=== PATIENT | male | born 1955 | race Caucasian/White ===

== ENCOUNTER 2019-04-02 07:48 | Day surgery (SDC) | payer MEDICAID, OTHER ==
[~2019-04-02] VITALS: Ht 180.3 cm; Wt 83.4 kg
[2019-04-02] VITALS (12 sets, daily range): BP systolic 140–155; BP diastolic 86–105; PULSE 67–99; RESP 15–18; Ht 180.3 cm; Wt 83.4 kg
[2019-04-02] MEDS ORDERED: HYDR12.53 ORAL (08:39)
[2019-04-02] MEDS ORDERED: TOPI25TA10 ORAL (08:39)
[2019-04-02] MEDS ORDERED: TERA2CAP3 ORAL (08:39)
[2019-04-02] MEDS ORDERED: GABA-528 ORAL (08:39)
[2019-04-02] MEDS ORDERED: OMEP20CA16 ORAL (08:43)
[2019-04-02] MEDS ORDERED: SECU150S2 SQ (08:43)
[2019-04-02] MEDS ORDERED: DULO60CA59 ORAL (08:43)
[2019-04-02] MEDS ORDERED: BUPR75TA9 ORAL (08:43)
[2019-04-02] MEDS ORDERED: LORA10TA3 ORAL (08:43)
[2019-04-02] MEDS ORDERED: POLYMYXIN/BACITRACIN 1L IRRIG ONE (08:44)
[2019-04-02] MEDS ORDERED: ESZO3TAB37 ORAL (08:44)
[2019-04-02] MEDS ORDERED: BUPIVACAINE 0.5% (SDV) 30 ML INJ ONE (08:44)
[2019-04-02] MEDS ORDERED: TR1B60 TOP (08:46)
[2019-04-02] MEDS ORDERED: OXYC30TA PO (08:46)
[2019-04-02] MEDS ORDERED: THYR60TA ORAL (08:46)
--- NOTE | 2019-04-02 08:54 | HPN ---
Date/Time of Note Date/Time of Note DATE: 04/02/19 TIME: 08:54 Interval H&P Admission Note Pt. seen H&P reviewed: No system changes JOHNY RIZVI April 02, 2019 08:54
--- NOTE | 2019-04-02 09:13 | PREAC ---
Date/Time of Note Date/Time of Note DATE: 04/02/19 TIME: 09:04 Anesthesia Eval and Record Evaluation Time Pre-Procedure Interview DATE: 04/02/19 TIME: 09:04 Age 63 Sex male NPO: 8 hrs Preoperative diagnosis right cubital tunnel syndrome. right elbow medial epicondylitis. Right carpal tunnel syndrome Planned procedure right ulnar nerve decompression at the elbo.l Right elbow medial epicondylectomy with primary repair of common flexor tendon origin. RIght carpal tunnel release versus open Past Medical History Past Medical History: Includes (chronic oxycodon for 10 years for chronic back pain) Cardio: HTN Renal: BPH GI: GERD Psych: Depression Recreational drugs: Other Surgery & Anesthesia Issues No known issue (polyarthralgia) Meds Anticoagulation: No Beta Yomi within 24 hr: No Reason Beta Yomi not given: Pt. not on B-Yomi Reported Medications Oxycodone Hcl* (IR) (Oxycodone Hcl*) 30 Mg Tablet, 30 MG PO Q4H PRN for PAIN, TAB 04/02/19 Thyroid,Pork ([employer] THYROID) 60 Mg Tablet, 1 TAB ORAL DAILY 04/02/19 Triamcinolone Acetonide (Triamcinolone Acetonide) 0.1% - 60 Ml Lotion, TOP DAILY APPLY TO AFFECTED AREA 04/02/19 Eszopiclone (Eszopiclone) 3 Mg Tablet, 1 TAB ORAL DAILY 04/02/19 Duloxetine Hcl* (Duloxetine Hcl*) 60 Mg Capsule.dr, 1 CAP ORAL DAILY 04/02/19 Bupropion Hcl* (Bupropion Hcl*) 75 Mg Tablet, 1 TAB ORAL DAILY 04/02/19 Loratadine* (Loratadine*) 10 Mg Tablet, 1 TAB ORAL DAILY 04/02/19 Omeprazole* (Omeprazole*) 20 Mg Capsule.dr, 1 CAP ORAL DAILY 04/02/19 Secukinumab (Cosentyx (2 Syringes)) 150 Mg/1 Ml Syringe, 150 MG SQ [id number] 04/02/19 Topiramate* (Topiramate*) 25 Mg Tablet, 1 TAB ORAL DAILY 04/02/19 Gabapentin* (Gabapentin*) 800 Mg Tablet, 3 TAB ORAL QHS 04/02/19 Hydrochlorothiazide (Hydrochlorothiazide) 12.5 Mg Capsule, 1 CAP ORAL DAILY 04/02/19 Terazosin Hcl* (Terazosin Hcl*) 2 Mg Capsule, 1 CAP ORAL QHS 04/02/19 Meds reviewed: Yes Allergies Coded Allergies: No Known Allergy (Unverified , 04/02/19) Allergies Reviewed: Yes Labs/Studies Labs Reviewed: Reviewed by anesthesiologist test: N/A Pre-procedure Exam Last vitals Vital Signs Date Temp Pulse Resp B/P (MAP) Pulse Ox O2 O2 Flow FiO2 Time Delivery Rate 04/02/19 98.9 99 16 141/90 97 Room Air 08:27 (107) Airway: Adequate mouth opening, Adequate thyromental dist Mallampati: Mallampati III Teeth: Normal Lung: Normal Heart: Normal ASA Physical Status ASA physical status: 3 Emergency: None Planned Anesthetic General/MAC: LMA Planned Pain Management Local by surgeon Pre-operative Attestations Prior to commencing anesthesia and surgery, the patient was re-evaluated, there was verification of: *The patient's identity *The results of appropriate recent lab work and preoperative vital signs *The above evaluation not changing prior to induction *Anesthetic plan, risk benefits, alternative and complications discussed with pa tient/family; questions answered; patient/family understands, accepts and wishes to proceed. MELLY SIMPSON CRNA April 02, 2019 09:13
[2019-04-02] MEDS ORDERED: LIDOCAINE 2% (SDV) 5 ML INJ ONE (09:15)
[2019-04-02] MEDS ORDERED: FENTAnyl 50 MCG/ML VIAL ONE (09:15)
[2019-04-02] MEDS ORDERED: PROPOFOL 20 ML ONE (09:15)
[2019-04-02] MEDS ORDERED: ONDANSETRON 4 MG INJ ONE (09:27)
[2019-04-02] MEDS ORDERED: CEFAZOLIN 1 GM INJ ONE (09:27)
[2019-04-02] MEDS ORDERED: FAMOTIDINE 20 MG INJ ONE (09:28)
[2019-04-02] MEDS ORDERED: DEXAMETHASONE 4 MG/ML 5 ML INJ ONE (09:28)
[2019-04-02] MEDS ORDERED: POLYMYXIN/BACITRACIN 1L IRRIG IRR ONE (09:42)
[2019-04-02] MEDS ORDERED: KETOROLAC 30 MG INJ IV PRN (10:00)
[2019-04-02] MEDS ORDERED: ONDANSETRON 4 MG INJ IV PRN (10:00)
[2019-04-02] MEDS ORDERED: FENTAnyl 50 MCG/ML VIAL IV PRN ×2 (10:00)
[2019-04-02] MEDS ORDERED: MEPERIDINE 25 MG INJ IV PRN (10:00)
[2019-04-02] MEDS ORDERED: HYDROmorphONE 1 MG/5 ML IV SYRINGE IV PRN ×3 (10:00)
[2019-04-02] MEDS ORDERED: OXYCODONE/ACETAMINOPHEN (5/325) TAB PO PRN ×2 (10:00)
--- NOTE | 2019-04-02 10:15 | PAC ---
Date/Time of Note Date/Time of Note DATE: 04/02/19 TIME: 10:13 Post-Anesthesia Notes Post-Anesthesia Note Last documented vital signs Vital Signs Date Temp Pulse Resp B/P (MAP) Pulse Ox O2 O2 Flow FiO2 Time Delivery Rate 04/02/19 98.8 84 12 147/87 97 Room Air 10:07 Activity: WNL Respiratory function: WNL Cardiovascular function: WNL Mental status: Baseline Pain reasonably controlled: Yes Hydration appropriate: Yes Nausea/Vomiting absent: Yes MELLY SIMPSON CRNA April 02, 2019 10:15
--- NOTE | 2019-04-02 10:57 | OPPN ---
Date/Time of Note Date/Time of Note DATE: 04/02/19 TIME: 10:56 Operative Report Preoperative Diagnosis Right cubital tunnel syndrome right carpal tunnel syndrome right elbow medial epicondylitis Postoperative Diagnosis Right cubital tunnel syndrome right carpal tunnel syndrome right elbow medial epicondylitis Operation/Procedure Performed Right ulnar nerve decompression at the elbow right carpal tunnel release, open right elbow medial epicondylectomy with primary repair common flexor tendon Surgeon see signature line child care assistant none Anesthesia: general Estimated blood loss: 0 - 10 ml's Transfusion Required none Specimen none Grafts/Implants none Complications none JOHNY RIZVI April 02, 2019 10:57
--- NOTE | 2019-04-02 15:48 | OPR ---
DATE OF OPERATION: 04/02/2019 SURGEON: Anthony Weeks MD. ANESTHESIA: General. PREOPERATIVE DIAGNOSES: 1. Right ulnar nerve compression at the elbow, cubital tunnel syndrome. 2. Right carpal tunnel syndrome. 3. Right elbow medial epicondylitis. POSTOPERATIVE DIAGNOSES: 1. Right ulnar nerve compression at the elbow, cubital tunnel syndrome. 2. Right carpal tunnel syndrome. 3. Right elbow medial epicondylitis. PROCEDURE: 1. Right ulnar nerve decompression at the elbow. 2. Right carpal tunnel release, open. 3. Right elbow medial epicondylectomy. 4. Right elbow primary repair of common flexor tendon origin. OPERATIVE FINDINGS: Compression of median nerve at the wrist and ulnar nerve at the elbow. INDICATION FOR PROCEDURE: This is a 63-year-old male with longstanding right elbow and wrist pain as well as numbness in the hand. We discussed the options. Given failure of conservative measures, the patient elected to proceed with surgical intervention, understanding the risks and benefits. DESCRIPTION OF PROCEDURE: The patient was seen in the preoperative area and all further questions were answered. Again, he gave informed consent understanding risks and benefits. He was taken to operative suite and placed in supine position. He was placed under general anesthesia and 2 grams Ancef IV given. Tourniquet placed in the right upper extremity and right upper extremity was prepped with ChloraPrep stick and draped in usual sterile fashion. Esmarch bandage was used to exsanguinate the extremity and tourniquet inflated to 250 mmHg. Attention was first turned to the carpal tunnel and a 2 cm incision at the base of the palm was utilized. Sharp dissection carried down through skin and subcutaneous tissue. The palmar aponeurosis was incised along its ulnar border and retractors were deepened where the transverse carpal ligament was incised on its ulnar border approximately 3 mm radial to the hook of the hamate. Retractors were placed proximally and distally, and proximal and distal to the transverse carpal ligament were divided under direct visualization. Wound was copiously irrigated and skin closed with 5-0 nylon. Attention was turned to the elbow and a curvilinear incision over the medial epicondyle was utilized with sharp dissection carried down through skin and subcutaneous tissue. The soft tissues were divided using tenotomy scissors and the medial epicondyle and cubital tunnel and Hodges's ligament was visualized. The nerve was decompressed at the elbow with division of Hodges's ligament as well as the superficial and deep layers of the FCU fascia. The nerve was decompressed proximally past the intermuscular septum. The nerve was stable in the groove and was decompressed and attention was then turned to the medial epicondylectomy and repair of the common flexor tendon origin. The flexor tendon was elevated off of the medial epicondyle and medial epicondylectomy was performed using a rongeur with 4 mm of bone excised. The edges of the bone were smoothed, and there was decreased prominence of the medial epicondyle. The wound was copiously irrigated and the common flexor tendon origin was repaired using 3-0 Ethibond suture. After repair of the common flexor tendon origin. The elbow was ranged and everything was stable. The wound was then irrigated and skin closed with 5-0 nylon. Xeroform placed over the wound followed by sterile gauze, Webril, and a long arm splint. Tourniquet deflated after 30 minutes. The patient was awakened from anesthesia. He was taken to the operative suite in stable condition, tolerated the procedure well without complication. SPECIMENS: None. ESTIMATED BLOOD LOSS: 5 mL. COUNTS: Sponge, instrument and needle counts were correct. TOURNIQUET TIME: 30 minutes. CONDITION ON DISCHARGE: Stable. The patient was given nonrefillable 5-day prescription for pain medication for surgery today. Dictated By: ANTHONY SEGURA/BRUNO Conf#: [id number] DID#: [id number] ANTWAN
== END 2019-04-02 11:45 | disposition home or self-care (01) ==
LOC: SDS 07:48
PROVIDERS: ATTEND Orthopaedic Surgery Hand Surgery
DX: G56.21 Lesion of ulnar nerve, right upper limb (principal); G56.01 Carpal tunnel syndrome, right upper limb; M77.01 Medial epicondylitis, right elbow; I10 Essential (primary) hypertension
CPT/HCPCS: 24358; 64721; J0690; J1100; J1170; J1885; J2175; J2405; J3010; Z7512; Z7610

== ENCOUNTER 2019-07-27 06:55 | Day surgery (SDC) | payer OTHER ==
[~2019-07-27] VITALS: Ht 180.3 cm; Wt 81.6 kg
[~2019-07-27 06:55] MED LIST: BUPR75TA9 ORAL; DULO60CA59 ORAL; ESZO3TAB37 ORAL; GABA-528 ORAL; HYDR12.53 ORAL; LORA10TA3 ORAL; LUN3 PO; METH5TAB3 PO; OMEP20CA16 ORAL; OXYC30TA PO; SECU150S2 SQ; TERA2CAP3 ORAL; THYR60TA ORAL; TOPI25TA10 ORAL; TR1B60 TOP
[2019-07-27 08:18] VITALS: Ht 180.3 cm; Wt 81.6 kg
[2019-07-27] MEDS ORDERED: PROPOFOL 200 MG INJ ONE (08:30)
[2019-07-27] MEDS ORDERED: PROPOFOL 20 ML ONE (08:33)
[2019-07-27] MEDS ORDERED: FENTAnyl 50 MCG/ML VIAL ONE (08:33)
[2019-07-27 08:46] VITALS: BP 152/94; PULSE 56; RESP 18
[2019-07-27] MEDS ORDERED: HYDROmorphONE 2 MG/ML SYG IV STA (09:19)
[2019-07-27] MEDS ORDERED: HYDROmorphONE 1 MG/ML SYG ONE (09:25)
== END 2019-07-27 11:09 | disposition home or self-care (01) ==
LOC: GIL 06:55
PROVIDERS: ATTEND Internal Medicine Gastroenterology
DX: Z12.11 Encounter for screening for malignant neoplasm of colon (principal); K64.8 Other hemorrhoids; K63.89 Other specified diseases of intestine; K29.30 Chronic superficial gastritis without bleeding
CPT/HCPCS: 43239; 45378; 88305; 88312; 88313; J1170; J3010; Z7610